=== PATIENT | female | born 1980 | race Caucasian/White ===

== ENCOUNTER 2022-09-02 11:41 | Emergency (ER) | payer OTHER ==
[2022-09-02 11:47] VITALS: BMI 37.1
[2022-09-02] MEDS ORDERED: KETOROLAC TROMETHAMINE 30 MG/1 ML VIAL IM ONE (12:24)
[2022-09-02] MEDS ORDERED: LIDOCAINE 5% TOPICAL PATCH TP ONE (12:25)
[2022-09-02] MEDS ORDERED: LIDOCAINE 5% TOPICAL PATCH ONE ×2 (12:48→13:40)
[2022-09-02] MEDS ORDERED: KETOROLAC TROMETHAMINE 30 MG/1 ML VIAL ONE ×2 (12:48→13:40)
[2022-09-02 14:15] LABS: URINE APPEARANCE CLEAR; URINE BILIRUBIN NEGATIVE (NEGATIVE); URINE COLOR YELLOW; URINE GLUCOSE (UA) NEGATIVE (NEGATIVE); URINE KETONE NEGATIVE (NEGATIVE); URINE LEUK ESTERASE NEGATIVE (NEGATIVE); URINE NITRITE NEGATIVE (NEGATIVE); URINE PROTEIN NEGATIVE (NEGATIVE); URINE UROBILINOGEN 0.2 mg/dL (0.2-1.0)
[2022-09-02 16:33] VITALS: BP 121/63; PULSE 71; RESP 20; TEMP 98.1
[2022-09-02] MEDS ORDERED: LIDOCAINE PATCH REMOVAL MC ONE (22:00)
== END 2022-09-02 16:33 | disposition home or self-care (01) ==
LOC: JER 11:41
PROC: 3E0233Z Introduction of Anti-inflammatory into Muscle, Percutaneous Approach (ICD-10-PCS; principal; 2022-09-02)
DX: M54.9 Dorsalgia, unspecified (principal); R10.9 Unspecified abdominal pain
CPT/HCPCS: 81003; 84703; 99284-25